=== PATIENT | male | born 1975 | race Caucasian/White ===

== ENCOUNTER 2025-03-08 12:20 | Observation (INO) ==
[2025-03-08 13:08] LABS: Hematocrit (blood only) 45.4 % (42.0-52.0); Hemoglobin 15.2 g/dl (14.0-18.0); Immature Granulocytes # (auto) 0.08 K/uL (0.01-0.20); Immature Granulocytes % (auto) 0.6 %; Mean Corpuscular Hemoglobin 31.2 pg (25.0-34.0); Mean Corpuscular Volume 93.2 fL (80.0-100.0); Platelet Count 303 K/uL (130-400); RDW Standard Deviation 44.4 fL (36.4-46.3); Red Blood Count 4.87 M/uL (4.70-6.10); White Blood Count 13.87 K/ul (4.8-10.8)
--- NOTE | 2025-03-08 13:15 | XRay Report ---
XR chest 1V portable HISTORY: 49 years-old Male Abdominal Pain acute chest and abdominal pain COMPARISON: 05/18/2009 TECHNIQUE: AP view of the chest FINDINGS: Cardiomediastinal and hilar silhouettes are within normal limits. No pneumothorax, pleural effusion o r airspace consolidation. Bones appear grossly intact. IMPRESSION: No acute process. ACT 112: Negative or not required by law. The above report was generated using voice recognition software. It may contain grammatical, syntax o r spelling errors. Electronically signed by: Moises Malhotra M.D. 03/08/2025 1:14 PM
[2025-03-08 13:26] LABS: Alanine Aminotransferase 12.0 U/L (7-52); Albumin Globulin Ratio 1.4 (0.9-2); Alkaline Phosphatase 51.0 U/L (34-104); Anion Gap 7.0 (3-11); Bilirubin,Total 0.7 mg/dl (0.2-1.0); Blood Urea Nitrogen 15.0 mg/dl (6-23); Calcium 9.0 mg/dl (8.6-10.3); Carbon Dioxide 26.0 mmol/L (21-32); Chloride 105.0 mmol/L (98-107); Creatinine Clr Calc Pharmacy 74.2 ml/min; Globulin 3.2 gm/dl (2.5-4.0); Glucose 96.0 mg/dl (70-99(Fasting)); Lipase 30.0 U/L (11-82); Potassium 3.7 mmol/L (3.5-5.1); Sodium 138.0 mmol/L (136-145); Total Protein 7.6 gm/dl (6.0-8.3)
[2025-03-08 13:37] LABS: INR 1.0 (0.9-1.1); Partial Thromboplastin Time 29 Seconds (21-31); Prothrombin Time 10.5 Seconds (9.0-12.0)
[2025-03-08] MEDS: ONDANSETRON INJ 2 MG/ML 2 ML VIAL IV STA (14:10)
[2025-03-08] MEDS: ACETAMINOPHEN 1,000 MG/100 ML VIAL IV STA (14:10)
[2025-03-08] MEDS: diphenhydrAMINE 50 MG/ML VIAL IV STA (14:11)
--- NOTE | 2025-03-08 14:41 | Emergency Department Note ---
Impression & Plan Appendicitis, acute ED Provider Note CHIEF COMPLAINT: Mid epigastric abdominal pain HISTORY OF PRESENTING ILLNESS: Patient is a 49-year-old male who presents to the emergency department today for complaints of mid epigastric abdominal pain. He states he was seen at urgent care and told that he had an abnormal EKG and they had concerns for pancreatitis or appendicitis. Here he reports specifically mid epigastric abdominal pain with some nausea but no vomiting. However on obtaining a thorough history he did report that about a week ago he had some blunt abdominal trauma while working with a table saw and the shield flew off hitting him in the area of concern today. He has no blood in his urine or stool. He denies any direct chest pain, headache, fevers/chills, any recent illness, or any recent travel. He denies smoking or vaping. Does occasionally use alcohol and does have a medical marijuana card. REVIEW OF SYSTEMS: See HPI for pertinent positives and pertinent negatives. ALLERGIES: See below MEDICATIONS: See below PAST MEDICAL HISTORY: See below PHYSICAL EXAM: VITAL SIGNS -Vital signs and nursing notes were reviewed. GENERAL -49-year-old male appearing his stated age who is in no acute distress but does appear significantly uncomfortable and in pain. Communicates well with provider and answers questions appropriately. HEAD -NC/AT. EYES -PERRL with EOMI bilaterally. Sclera anicteric. Palpebral conjunctiva pink and moist with no injection noted. MOUTH/OROPHARYNX -Without perioral cyanosis. Buccal mucosa pink and moist and without leukoplakia. Tongue midline with equal elevation of palate bilaterally. No tonsillar hypertrophy, erythema, or exudates noted. Good dentition noted. NECK- Neck with FROM. Supple to palpation. No nuchal rigidity. LUNGS -Chest wall symmetric without accessory muscle use, intercostals retractions, or central cyanosis. Normal vesicular breath sounds CTA B/L. No wheezes, rales, or rhonchi appreciated. CARDIAC -RRR with S1/S2. No murmur, rubs, or gallops appreciated. ABDOMEN - Abdominal contour is without pulsations or visible masses.BS normoactive all four quadrants. Increased tenderness to palpation appreciated in the mid epigastric region. Positive guarding. No rebound Tenderness. Negative Vovsings. Negative [place]. No palpable masses, hepatosplenomegaly, or ascites noted. EXTREMITIES - No clubbing or peripheral cyanosis. No pretibial edema present. +3/5 radial and dorsalis pedis pulses palpated throughout. +5/5 strength noted in UE/LE bilaterally. PSYCH -A&Ox3 and cooperates fully with examiner. Pt is very pleasant and interacts well with examiner. DIFFERENTIAL DIAGNOSIS: Blunt abdominal trauma, bleed, cholecystitis, appendicitis, constipation, liver injury, spleen injury, pancreatic injury, among others. ED COURSE AND MEDICAL DECISION MAKING: HISTORY FROM INDEPENDENT HISTORIAN: History was provided by the patient and his at bedside. MEDICATIONS GIVEN: An IV lock was placed. The patient was given Tylenol 1 g IV and Zofran 4 mg IV and had improvement with pain and nausea. I considered the use of narcotics on this patient due to the significant pain however the patient refused any narcotic pain medication. MONITOR: Continuous desk monitor: Order was placed for continuous desk monitor. Patient was placed on the desk monitor and continuous pulse ox. Patient was noted to be in normal sinus rhythm at an initial rate of 68 bpm per my interpretation. EKG: EKG was interpreted by myself as normal sinus rhythm with sinus arrhythmia and a right bundle branch block. INTERPRETATION OF LABS: I interpreted the labs with full lab results as below in the lab section of this note. Laboratory results pertinent to the emergent complaint are discussed in the MDM section below. The patient was advised to follow up with their PCP and/or specialist(s) for further outpatient monitoring and management of any abnormal results. INTERPRETATION OF IMAGING: Imaging studies were interpreted by myself and read by radiology as per the imaging section of this note. The patient was advised to follow up with their PCP and/or specialist(s) for further outpatient management of any non-emergent abnormal findings. CHRONIC MEDICAL/SOCIAL CONDITIONS AFFECTING CARE: No social concerns were identified as barriers to patients care. ESCALATION OF CARE CONSIDERED: I considered admission on this patient with a CT scan that did show appendicitis. SUMMARY: I examined the patient for complaints of midepigastric abdominal pain with known blunt force trauma. A physical exam and history were performed. Nursing notes, EMR, and medication list were personally reviewed. Patient CBC did show a white blood cell count of 13.87. No anemia or thrombocytopenia. PT/INR and APTT were all normal. CMP was normal aside from a creatinine 1.4. Urinalysis was negative for leukocytes, nitrates, bacteria. CT scan of the abdomen and pelvis did show acute appendicitis with no evidence of abscess or perforation. There was no evidence of any solid organ injury to the abdomen or pelvis. I consulted with Dr. Reddy who accepted the patient for admission. DIAGNOSIS: Appendicitis TREATMENT PLAN/DISCHARGE INSTRUCTIONS: Admission to hospitalist services. 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 S/P foot surgery right foot-2005 S/P knee surgery right knee-1994 S/P hernia repair 2019 Family History Mother Anxiety Brother Hypertension Kidney disease Denies family history of Ovarian cancer Prostate cancer Breast cancer Colorectal cancer Social History Smoking Status: Former smoker Tobacco Type: Cigarettes Age Started Using Tobacco: 18; Age Quit Using Tobacco: 40; packs per day: 2; Second Hand Exposure: No; Do You Dip or Chew Tobacco: No; Tobacco Cessation Education Requested by Patient: No Hx Alcohol Use: Yes Alcohol Intake Frequency: Monthly or Less Hx Substance Use: No Preferred Language: Hebrew Communication Ability: Effective Visual Impairment: No Limitations Hearing Ability: Normal Construction Ironworker Required: No Beliefs That Will Affect Care: None marital status: Current Living Situation: Spouse current occupational status: employed current occupation: maintenance Other Information That Helps Us Care for You: No Feels Safe at Home: Yes Safety Concerns: Feels Safe At This Time Childhood Exposure to Second-Hand Smoke: No Diet: regular Diet Comment: regular caffeine: Yes (coffee, tea) during the past year weight has: remained stable Dental Care, Regularly: No Physical Activity Frequency: 3-4 Times per Week Seatbelt Use: sometimes Sunscreen Use: Yes Assistive Devices: None Allergies Allergies Allergy/AdvReac Type Severity Reaction Status Date / Time bee venom protein (honey bee) Allergy Severe ANAPHYLAXIS Verified 03/08/25 16:36 shellfish derived Allergy DIZZY Verified 03/08/25 16:36 NAUSEA SWELLING Home Meds Home Medications Medication Instructions Recorded Confirmed No Known Home Medications 03/08/25 03/08/25 Results & Data (ED) Vital Signs Vital Signs - 24 hr 03/08/25 12:33 03/08/25 13:10 03/08/25 13:52 Temperature 37.1 C Temperature Source Temporal Artery Scan Pulse Rate 68 79 Pulse Rate [Apical] 69 Pulse Rhythm [Apical] Regular Pulse Strength [Apical] Normal Respiratory Rate 18 18 Respiratory Effort / Characteristics Non-Labored Spontaneous Respiratory Depth Normal Respiratory Pattern Regular Blood Pressure 143/89 H Blood Pressure [Right Arm] Blood Pressure Mean 107 Blood Pressure Mean [Right Arm] Pulse Oximetry 97 99 Oxygen Delivery Method Room Air Room Air Sepsis Recent Fever Within 48 Hours No Sepsis New/Unexplained Change in Mental Status N/A Sepsis Action Taken by Nursing No Action Required 03/08/25 14:00 03/08/25 15:00 Temperature Temperature Source Pulse Rate Pulse Rate [Apical] 68 75 Pulse Rhythm [Apical] Pulse Strength [Apical] Respiratory Rate 19 18 Respiratory Effort / Characteristics Non-Labored Spontaneous Respiratory Depth Normal Respiratory Pattern Blood Pressure Blood Pressure [Right Arm] 131/93 129/78 Blood Pressure Mean Blood Pressure Mean [Right Arm] 105 95 Pulse Oximetry 96 97 Oxygen Delivery Method Room Air Sepsis Recent Fever Within 48 Hours Sepsis New/Unexplained Change in Mental Status Sepsis Action Taken by Nursing Laboratory Data 03/08/25 12:45 03/08/25 12:45 Lab Results 03/08/25 Range/Units 12:45 WBC 13.87 H (4.8-10.8) K/ul RBC 4.87 (4.70-6.10) M/uL Hgb 15.2 (14.0-18.0) g/dl Hct 45.4 (42.0-52.0) % MCV 93.2 (80.0-100.0) fL MCH 31.2 (25.0-34.0) pg MCHC 33.5 (32.0-36.0) g/dL RDW Std Deviation 44.4 (36.4-46.3) fL RDW Coeff of Philip 13.1 (11.5-14.5) % Plt Count 303 (130-400) K/uL MPV 10.1 (9.4-12.4) fL Immature Gran % (Auto) 0.6 % Neut % (Auto) 77.6 % Lymph % (Auto) 14.7 % [place] % (Auto) 6.1 % Eos % (Auto) 0.6 % Baso % (Auto) 0.4 % Neut # (Auto) 10.77 H (1.40-6.50) K/uL Lymph # (Auto) 2.04 (1.20-3.40) K/uL [place] # (Auto) 0.85 H (0.11-0.59) K/uL Eos # (Auto) 0.08 (0.00-0.50) K/uL Baso # (Auto) 0.05 (0.00-0.20) K/uL Immature Gran # (Auto) 0.08 (0.01-0.20) K/uL PT 10.5 (9.0-12.0) Seconds INR 1.0 (0.9-1.1) APTT 29 (21-31) Seconds PTT Ratio 1.1 Sodium 138 (136-145) mmol/L Potassium 3.7 (3.5-5.1) mmol/L Chloride 105 (98-107) mmol/L Carbon Dioxide 26 (21-32) mmol/L Anion Gap 7 (3-11) BUN 15 (6-23) mg/dl Creatinine 1.42 H (0.6-1.4) mg/dl Est Cr Clr Drug Dosing 74.2 ml/min eGFR 61.33 BUN/Creatinine Ratio 10.6 (10-20) Glucose 96 (70-99(Fasting)) mg/dl Calcium 9.0 (8.6-10.3) mg/dl Total Bilirubin 0.7 (0.2-1.0) mg/dl AST 14 (13-39) U/L ALT 12 (7-52) U/L Alkaline Phosphatase 51 (34-104) U/L Troponin I High Sens 4.9 (0-20) pg/ml Total Protein 7.6 (6.0-8.3) gm/dl Albumin 4.4 (3.4-5.0) gm/dl Globulin 3.2 (2.5-4.0) gm/dl Albumin/Globulin Ratio 1.4 (0.9-2) Lipase 30 (11-82) U/L Administered Medications Lactated Ringer's (Lr) 1,000 mls @ 80 mls/hr IV .[id number] SALONI Stop: 03/11/25 18:44 Last Admin: 03/08/25 19:32 Dose: 80 mls/hr Documented By: NANCIE Morphine Sulfate (Morphine Sulfate 2 Mg/Ml Carp) 2 mg IV Q3H PRN PRN Reason: Pain (1,2,3,4,5) & Pre PT Stop: 03/22/25 18:21 Last Admin: 03/08/25 18:45 Dose: 2 mg Documented By: MARBIN Ondansetron HCl (Ondansetron Inj 2 Mg/Ml 2 Ml Vial) 4 mg IV Q6H PRN PRN Reason: Nausea Stop: 04/07/25 18:21 Last Admin: 03/08/25 20:15 Dose: 4 mg Documented By: NANCIE Discontinued Medications Diphenhydramine HCl (Diphenhydramine 50 Mg/Ml Vial) 50 mg IV NOW STA Stop: 03/08/25 13:59 Last Admin: 03/08/25 14:11 Dose: Not Given Documented By: LUCY Acetaminophen (Ofirmev) 1,000 mg in 100 mls @ 400 mls/hr IV NOW STA Stop: 03/08/25 13:56 Last Infusion: 03/08/25 15:00 Dose: Infused Documented By: Admin: 03/08/25 14:10 Dose: 400 mls/hr Documented By: LUCY Piperacillin Sod/Tazobactam Sod (Zosyn) 4.5 gm in 100 mls @ 200 mls/hr IV NOW STA; Protocol Stop: 03/08/25 19:04 Last Infusion: 03/08/25 20:14 Dose: Infused Documented By: Admin: 03/08/25 19:36 Dose: 200 mls/hr Documented By: NANCIE Methylprednisolone (Methylprednisolone 125 Mg/2 Ml Vial) 125 mg IV NOW STA Stop: 03/08/25 13:59 Last Admin: 03/08/25 14:11 Dose: Not Given Documented By: LUCY Ondansetron HCl (Ondansetron Inj 2 Mg/Ml 2 Ml Vial) 4 mg IV NOW STA Stop: 03/08/25 13:43 Last Admin: 03/08/25 14:10 Dose: 4 mg Documented By: LUCY Imaging Data Radiologist's Impression: Chest X-Ray 03/08/25 12:38 XR chest 1V portable HISTORY: 49 years-old Male Abdominal Pain acute chest and abdominal pain COMPARISON: 05/18/2009 TECHNIQUE: AP view of the chest FINDINGS: Cardiomediastinal and hilar silhouettes are within normal limits. No pneumothorax, pleural effusion or airspace consolidation. Bones appear grossly intact. IMPRESSION: No acute process. ACT 112: Negative or not required by law. The above report was generated using voice recognition software. It may contain grammatical, syntax or spelling errors. Electronically signed by: Moises Malhotra M.D. 03/08/2025 1:14 PM Abdomen/Pelvis CT 03/08/25 14:06 CT SCAN OF THE ABDOMEN AND PELVIS WITHOUT IV CONTRAST CLINICAL HISTORY: Mid abdominal pain. Recent blunt trauma. COMPARISON STUDY: Abdominal CT dated 05/18/2009 TECHNIQUE: CT scan of the abdomen and pelvis is performed from the lung bases to the proximal femora. Images are reviewed in the axial, sagittal, and coronal planes. IV contrast was not administered for this examination. A dose lowering technique was utilized adhering to the principles of ALARA. CT DOSE: 1320.94 mGy.cm FINDINGS: Lung bases: The heart is normal in size and without pericardial effusion. The lung bases are clear noting mild dependent atelectasis. There is a small hiatal hernia. Liver: The unenhanced liver is normal in size, contour, and attenuation. There is no intrahepatic biliary ductal dilatation. Gallbladder: Unremarkable. Spleen: Normal in size and attenuation. Pancreas: The unenhanced pancreas is grossly unremarkable. Adrenal glands: Unremarkable. Kidneys: The the left kidney is not identified and presumed surgically absent. The unenhanced right kidney is normal in size and without hydronephrosis. No right renal calculi are identified and there is no ureteral stone. There is no evidence of contour deforming renal mass lesion. Abdominal vasculature: The abdominal aorta is normal in course and caliber noting mild atherosclerotic calcification. Bowel: There is no bowel obstruction. The appendix is dilated, measuring 15 mm in diameter. The appendix is fluid-filled and contains small air-fluid levels. The wall is thickened and there is periappendiceal inflammation. Findings are consistent with acute appendicitis. No fluid collection is seen to suggest abscess. Peritoneum: There is no intraperitoneal free air or abdominal ascites. Postsurgical changes noted in the ventral abdominal wall. Lymphadenopathy: None. Pelvic viscera: The bladder, prostate, and seminal vesicles are normal as visualized. Skeletal structures: No lytic or blastic lesions are seen. IMPRESSION: 1. Acute appendicitis. There is no evidence of abscess or perforation. 2. There is no evidence of solid organ injury in the abdomen or pelvis on this unenhanced examination. 3. Status post left nephrectomy. 4. Additional findings as above. ACT 112: Negative or not required by law. Electronically signed by: Enzo Kwon M.D. 03/08/2025 2:56 PM Discharge Plan Visit Data Chief Complaint: Abdominal Pain Stated Complaint: ABD PAIN ED Provider: Abilio Wright ED Midlevel Provider: Felicitas Lucas Discharge Problem: Appendicitis, acute Patient Disposition: Admitted As Inpatient Condition: Good Discharge Instructions Interventions: ED Discharge Assessment Last Done: 03/08/25 18:00 Discharge Problem: Appendicitis, acute Qualifiers: Acute appendicitis type: unspecified acute appendicitis type Qualified Code(s): K35.80 - Unspecified acute appendicitis
--- NOTE | 2025-03-08 14:58 | CT Scan Report ---
CT SCAN OF THE ABDOMEN AND PELVIS WITHOUT IV CONTRAST CLINICAL HISTORY: Mid abdominal pain. Recent blunt trauma. COMPARISON STUDY: Abdominal CT dated 05/18/2009 TECHNIQUE: CT scan of the abdomen and pelvis is performed from the lung bases to the proximal femora. Images are reviewed in the axial, sagittal, and coronal planes. IV contrast was not administered for this examination. A dose lowering technique was utilized adhering to the principles of ALARA. CT DOSE: 1320.94 mGy.cm FINDINGS: Lung bases: The heart is normal in size and without pericardial effusion. The lung bases are clear no ting mild dependent atelectasis. There is a small hiatal hernia. Liver: The unenhanced liver is normal in size, contour, and attenuation. There is no intrahepatic matthew iary ductal dilatation. Gallbladder: Unremarkable. Spleen: Normal in size and attenuation. Pancreas: The unenhanced pancreas is grossly unremarkable. Adrenal glands: Unremarkable. Kidneys: The the left kidney is not identified and presumed surgically absent. The unenhanced right k idney is normal in size and without hydronephrosis. No right renal calculi are identified and there i s no ureteral stone. There is no evidence of contour deforming renal mass lesion. Abdominal vasculature: The abdominal aorta is normal in course and caliber noting mild atheroscleroti c calcification. Bowel: There is no bowel obstruction. The appendix is dilated, measuring 15 mm in diameter. The appe ndix is fluid-filled and contains small air-fluid levels. The wall is thickened and there is periappe ndiceal inflammation. Findings are consistent with acute appendicitis. No fluid collection is seen to suggest abscess. Peritoneum: There is no intraperitoneal free air or abdominal ascites. Postsurgical changes noted in the ventral abdominal wall. Lymphadenopathy: None. Pelvic viscera: The bladder, prostate, and seminal vesicles are normal as visualized. Skeletal structures: No lytic or blastic lesions are seen. IMPRESSION: 1. Acute appendicitis. There is no evidence of abscess or perforation. 2. There is no evidence of solid organ injury in the abdomen or pelvis on this unenhanced examination . 3. Status post left nephrectomy. 4. Additional findings as above. ACT 112: Negative or not required by law. Electronically signed by: Enzo Kwon M.D. 03/08/2025 2:56 PM
--- NOTE | 2025-03-08 16:00 | History & Physical Report ---
Date of Service March 08, 2025 Assessment & Plan (1) Appendicitis, acute: Plan: no appendicolith IV abx IVF will try short course of abx if does not respond then to OR in AM History of Present Illness Primary Care Provider: Jasmin Ku DO This is a 49YO who came to ED with abdominal pain. It began mid epigastric with some nausea but no vomiting. The pain is more right sided at this point. A CT scan shows appendicitis without an appendicolith. Pain improved since came to ED. 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) Overweight (BMI 25.0-29.9) Rotator cuff tendonitis Surgical History 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 S/P foot surgery right foot-2005 S/P knee surgery right knee-1994 S/P hernia repair 2019 Family History Mother Anxiety Brother Hypertension Kidney disease Denies family history of Ovarian cancer Prostate cancer Breast cancer Colorectal cancer Social History Smoking Status: Never smoker Tobacco Type: Cigarettes Age Started Using Tobacco: 18; Age Quit Using Tobacco: 40; packs per day: 2; Second Hand Exposure: No; Do You Dip or Chew Tobacco: No; Hx Alcohol Use: Yes Alcohol Intake Frequency: Monthly or Less Hx Substance Use: No Preferred Language: Gambian Communication Ability: Effective Visual Impairment: No Limitations Hearing Ability: Normal Pricing Associate Required: No Beliefs That Will Affect Care: None marital status: Current Living Situation: Spouse current occupational status: employed current occupation: maintenance Feels Safe at Home: Yes Childhood Exposure to Second-Hand Smoke: No Diet: regular Diet Comment: regular caffeine: Yes (coffee, tea) during the past year weight has: remained stable Dental Care, Regularly: No Physical Activity Frequency: 3-4 Times per Week Seatbelt Use: sometimes Sunscreen Use: Yes Review of Systems no fever and no chills no problem reported no problem reported no cough and no dyspnea no chest pain + abdominal pain and + nausea; no vomiting and no change in bowel habits no dysuria no back pain no problem reported no localized weakness and no generalized weakness no behavioral changes no easy bleeding and no easy bruising Physical Exam Constitutional: WD/WN, vitals as above Eyes: no scleral abnormality ENMT: external ear and nose normal, oropharynx normal Neck: trachea midline Respiratory: normal respiratory effort, lungs clear to auscultation Cardiovascular: RRR, no murmur, no edema Gastrointestinal (Abdomen): Inspection/Auscultation: abdomen normal to inspection, normal bowel sounds and + abdominal surgical scar (LLQ); abdomen not distended Percussion/Palpation: + abdomen tender and abdomen soft; no guardi ng and abdomen not rigid Musculoskeletal: Head/Neck/Chest: normocephalic and head atraumatic Skin: no rashes, warm and dry Results & Data Vital Signs (Past 12 Hours) Vital Signs Temp Pulse Pulse Resp BP BP Pulse Ox 03/08/25 15:00 75 18 129/78 97 03/08/25 14:00 68 19 131/93 96 03/08/25 13:52 79 03/08/25 13:10 69 18 99 03/08/25 12:33 37.1 C 68 18 143/89 H 97 O2 Del Method 03/08/25 15:00 03/08/25 14:00 Room Air 03/08/25 13:52 03/08/25 13:10 Room Air 03/08/25 12:33 Room Air Diagnostic Findings CT SCAN OF THE ABDOMEN AND PELVIS WITHOUT IV CONTRAST CLINICAL HISTORY: Mid abdominal pain. Recent blunt trauma. COMPARISON STUDY: Abdominal CT dated 05/18/2009 TECHNIQUE: CT scan of the abdomen and pelvis is performed from the lung bases to the proximal femora. Images are reviewed in the axial, sagittal, and coronal planes. IV contrast was not administered for this examination. A dose lowering technique was utilized adhering to the principles of ALARA. CT DOSE: 1320.94 mGy.cm FINDINGS: Lung bases: The heart is normal in size and without pericardial effusion. The lung bases are clear noting mild dependent atelectasis. There is a small hiatal hernia. Liver: The unenhanced liver is normal in size, contour, and attenuation. There is no intrahepatic biliary ductal dilatation. Gallbladder: Unremarkable. Spleen: Normal in size and attenuation. Pancreas: The unenhanced pancreas is grossly unremarkable. Adrenal glands: Unremarkable. Kidneys: The the left kidney is not identified and presumed surgically absent. The unenhanced right kidney is normal in size and without hydronephrosis. No right renal calculi are identified and there is no ureteral stone. There is no evidence of contour deforming renal mass lesion. Abdominal vasculature: The abdominal aorta is normal in course and caliber noting mild atherosclerotic calcification. Bowel: There is no bowel obstruction. The appendix is dilated, measuring 15 mm in diameter. The appendix is fluid-filled and contains small air-fluid levels. The wall is thickened and there is periappendiceal inflammation. Findings are consistent with acute appendicitis. No fluid collection is seen to suggest abscess. Peritoneum: There is no intraperitoneal free air or abdominal ascites. Postsurgical changes noted in the ventral abdominal wall. Lymphadenopathy: None. Pelvic viscera: The bladder, prostate, and seminal vesicles are normal as visualized. Skeletal structures: No lytic or blastic lesions are seen. IMPRESSION: 1. Acute appendicitis. There is no evidence of abscess or perforation. 2. There is no evidence of solid organ injury in the abdomen or pelvis on this unenhanced examination. 3. Status post left nephrectomy. 4. Additional findings as above.
--- NOTE | 2025-03-08 18:10 | Electrocardiogram Report ---
Test Reason : Blood Pressure : */* mmHG Vent. Rate : 68 BPM Atrial Rate : 68 BPM P-R Int : 150 ms QRS Dur : 104 ms QT Int : 374 ms P-R-T Axes : 59 72 57 degrees QTcB Int : 397 ms Normal sinus rhythm with sinus arrhythmia Incomplete right bundle branch block Borderline ECG No previous ECGs available Confirmed by Kashmir Sutherland ([id number]) on 03/08/2025 6:09:52 PM Referred By: REFERRED SELF Confirmed By: Kashmir Sutherland
[2025-03-08] MEDS ORDERED: MoRPHine SULFATE 4 MG/ML 1 ML CARP\\VIAL IV PRN (18:22)
[2025-03-08] MEDS: MoRPHine SULFATE 2 MG/ML CARP IV PRN (18:45)
[2025-03-08] MEDS: LACTATED RINGER'S 1,000 ML IV SCH (19:32)
[2025-03-08] MEDS: 4.5GM X1 IV STA (19:36)
[2025-03-08] MEDS: ONDANSETRON INJ 2 MG/ML 2 ML VIAL IV PRN (20:15)
[2025-03-08 21:44] LABS: Appearance Urine Clear (Clear); Glucose Urine UA Negative (Negative)
[2025-03-08] MEDS: PIPERACILLIN/TAZOBACTAM 4.5 GM/100 ML BAG IV SCH (23:33)
[2025-03-09 07:27] LABS: Hematocrit (blood only) 46.9 % (42.0-52.0); Hemoglobin 15.6 g/dl (14.0-18.0); Immature Granulocytes # (auto) 0.06 K/uL (0.01-0.20); Immature Granulocytes % (auto) 0.5 %; Mean Corpuscular Hemoglobin 31.0 pg (25.0-34.0); Mean Corpuscular Volume 93.1 fL (80.0-100.0); Platelet Count 315 K/uL (130-400); RDW Standard Deviation 45.1 fL (36.4-46.3); Red Blood Count 5.04 M/uL (4.70-6.10); White Blood Count 11.48 K/ul (4.8-10.8)
[2025-03-09] MEDS ORDERED: ROCURONIUM BROMIDE 10 MG/ML 5 ML VIAL IV ONE (07:28)
[2025-03-09] MEDS ORDERED: LIDOCAINE 2% 2 ML VIAL/AMP(20MG/ML) INFIL ONE (07:28)
[2025-03-09] MEDS ORDERED: MIDAZOLAM HCL 1 MG/ML 2ML VIAL ONE ×2 (07:28→08:37)
[2025-03-09] MEDS ORDERED: PROPOFOL IV EMULSION 10 MG/ML 20 ML VIAL IV ONE (07:28)
[2025-03-09] MEDS ORDERED: DEXAMETHASONE SOD INJ 4 MG/ML VIAL ONE (07:28)
[2025-03-09] MEDS ORDERED: ONDANSETRON INJ 2 MG/ML 2 ML VIAL ONE (07:28)
[2025-03-09] MEDS ORDERED: DexMEDEtomidine HCL IV 100 MCG/ML VIAL IV ONE (07:29)
[2025-03-09] MEDS ORDERED: ACETAMINOPHEN 1000 MG/100 ML IV IV ONE (07:45)
--- NOTE | 2025-03-09 08:01 | History & Physical Bridge Note ---
Date of Service March 09, 2025 History & Physical Bridge Note I have examined the patient, reviewed the History & Physical and in the interval since the performance of the History & Physical I have noted the following changes of clinical significance: no changes noted
--- NOTE | 2025-03-09 08:04 | Anesthesiology Consultation ---
Date of Service March 09, 2025 Assessment & Plan Chart Review Chart Review: Acceptable Risk for Surgery and Patient NOT seen in Pre Admission Testing Consults Requested none ASA ASA2E Proposed Anesthesia Anesthesia Type: General Risk / Benefits Reviewed With: PT / POA / Parent / Guardian, Accepts Plan and Informed Consent Obtained History Surgery Operation Date: 03/09/25 07:00 Proposed Procedures p Laparoscopic Appendectomy - Simone Campos MD Height/Weight Height: 5 ft 10 in Weight: 91 kg Allergies Allergy/AdvReac Type Severity Reaction Status Date / Time bee venom protein (honey bee) Allergy Severe ANAPHYLAXIS Verified 03/09/25 07:42 shellfish derived Allergy DIZZY Verified 03/09/25 07:42 NAUSEA SWELLING Medications Home Medications Medication Instructions Recorded Confirmed Last Taken No Known Home Medications 03/08/25 03/08/25 Unknown Active Medications Generic Name Dose Route Start Last Admin Trade Name Freq PRN Reason Stop Dose Admin Piperacillin Sod/Tazobactam Sod 4.5 gm in 100 mls @ 25 mls/hr 03/08/25 23:30 03/09/25 08:00 Zosyn IV 03/12/25 23:29 25 mls/hr Q8H SALONI Administration Protocol Lactated Ringer's 1,000 mls @ 80 mls/hr 03/08/25 18:45 03/09/25 07:27 Lr IV 03/11/25 18:44 0 mls/hr .[id number] SALONI Infusion Morphine Sulfate 2 mg 03/08/25 18:22 03/08/25 18:45 Morphine Sulfate 2 Mg/Ml Carp IV 03/22/25 18:21 2 mg Q3H PRN Administration Pain (1,2,3,4,5) & Pre PT Ondansetron HCl 4 mg 03/08/25 18:22 03/08/25 20:15 Ondansetron Inj 2 Mg/Ml 2 Ml Vial IV 04/07/25 18:21 4 mg Q6H PRN Administration Nausea NPO Date Last Intake of Fluids: 03/09/25 Time Last Intake of Fluids: 05:00 Last Intake of Fluids Comment: 1 sip of water, prior to that was coffee at 8am 7/8 Date Last Intake of Solids: 03/07/25 Time Last Intake of Solids: 17:00 Past Medical History ADD 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 HLD ASCVD Ao (mild) obese polyarthropathy GERD IRBBB Exercise / Class Metabolic Activity II 4-5 Yardwork/Stairs/Walk up hill Past Family History Family History Mother Anxiety Brother Hypertension Kidney disease Denies family history of Ovarian cancer Prostate cancer Breast cancer Colorectal cancer Past Surgical History Surgical History 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 S/P foot surgery right foot-2005 S/P knee surgery right knee-1994 S/P hernia repair 2019 Past Anesthesia History No Hx of Anesthesia Complications and No Family Hx of Anesthesia Complications History of PONV No Hx of PONV and No Hx of Motion Sickness Social History Smoking Status: Former smoker tobacco type: cigarettes Do You Dip or Chew Tobacco: No Hx Alcohol Use: Yes alcohol intake frequency: holidays/special occasions only Hx Substance Use: No Physical Exam Vital Signs Last Vital Signs Temp 36.8 C 03/09/25 07:42 Pulse 74 03/09/25 07:42 Resp 20 03/09/25 07:42 BP 128/71 03/09/25 07:42 Pulse Ox 98 03/09/25 07:42 O2 Del Method Room Air 03/09/25 07:42 Constitutional + obese; no acute distress ENMT Mouth: + dentition abnormality, + poor dentition and + chipped teeth Thyromental Distance: > or= 3.5 Finger Breadths Mallampati Class: III Neck normal visual inspection, trachea midline and + facial hair; neck extension not limited Respiratory normal respiratory effort Auscultation: lungs clear to auscultation bilaterally Cardiovascular Rate/Rhythm: regular rate and regular rhythm Heart Sounds: no murmur Vessels: no carotid bruit Musculoskeletal Spine: normal cervical ROM and no pain with cervical ROM Extremities: extremities normal to inspection; full ROM of extremities Neurologic moves all extremities Motor/Sensory: no sensory deficit Psychiatric Orientation: alert and oriented x 3 Testing Laboratory Results 03/09/25 06:54 03/08/25 12:45 PT 10.5 Seconds (9.0-12.0) 03/08/25 12:45 INR 1.0 (0.9-1.1) 03/08/25 12:45 APTT 29 Seconds (21-31) 03/08/25 12:45 Urine Color Yellow 03/08/25 Unknown Urine Appearance Clear (Clear) 03/08/25 Unknown Urine pH 6.5 (4.5-7.5) 03/08/25 Unknown Ur Specific [place] 1.020 (1.000-1.030) 03/08/25 Unknown Urine Protein Negative (Negative) 03/08/25 Unknown Urine Glucose (UA) Negative (Negative) 03/08/25 Unknown Urine Ketones 1+ (Negative) H 03/08/25 Unknown Urine Nitrite Negative (Negative) 03/08/25 Unknown Ur Leukocyte Esterase Negative (Negative) 03/08/25 Unknown Electrocardiogram Date: 03/08/25 Findings: + NSR @ (@ 70 w/ SA;IRBBB) Chest X-Ray Date: 03/08/25 Findings: + NAD
[2025-03-09] MEDS ORDERED: NALOXONE HCL 0.4 MG/1 ML VIAL/CARP IV PRN (08:06)
[2025-03-09] MEDS ORDERED: PROMETHAZINE HCL 6.25 MG in SODIUM CHLORIDE 0.9% 50 ML IV PRN (08:06)
[2025-03-09] MEDS ORDERED: FLUMAZENIL 0.1 MG/1 ML 10 ML VIAL IV PRN (08:06)
[2025-03-09] MEDS ORDERED: HYDROmorphone INJ 1 MG/ML SYRINGE IV PRN (08:06)
[2025-03-09] MEDS ORDERED: ATROPINE SULFATE 0.1 MG/ML 10ML SYR IV PRN (08:06)
[2025-03-09] MEDS ORDERED: KETOROLAC 30 MG/ML VIAL ONE (08:50)
[2025-03-09] MEDS ORDERED: SUGAMMADEX SODIUM 200 MG/2 ML VIAL IV ONE ×2 (08:50→08:52)
--- NOTE | 2025-03-09 09:07 | Operative Report ---
Post Operative Report Pre & Post Diagnosis Operation Date: 03/09/25 07:00 Pre-Op Diagnosis: Acute Appendicitis Post-Op Diagnosis: Acute Appendicitis I identified the patient and participated in the time-out.: Yes Procedure Operation Date: 03/09/25 07:00 Actual Procedures p Laparoscopic Appendectomy(Not Applicable) - Simone Cmapos MD Surgeon Simone Campos MD Wood Casket Assembler none Estimated Blood Loss 6 Findings Consistent with Post-Op Diagnosis Specimens appendix to pathology Drains none Anesthesia Type General Complications none Disposition Accompanied Patient To Recovery: No Disposition: Recovery Room Indications This is a 49-year-old male admitted to the ED with acute abdominal pain. Workup showed appendicitis without an appendicolith. He was placed on IV antibiotics for trial of conservative therapy. He continued pain will be taken to the OR for laparoscopic appendectomy. We have the risks in detail. Description of Procedure The patient was taken to the OR and underwent excellent general anesthesia. Their abdomen was prepped and draped in normal sterile fashion. A transverse supraumbilical incision was made, towel clamps were used to create tension on the abdominal wall as an 11 port was placed in the supraumbilical position, inserted with visualization gently into the peritoneal cavity. Good pneumoperitoneum was achieved to about 15 mmHg pressure. Once this was done, a visualized 12 mm left lower quadrant port , a 5mm suprapubic port , and a 5mm right upper quadrant port were all placed in normal fashion. Patient was then placed in head down and rolled to the left. A good diagnostic lap was performed. They had obvious acute appendicitis. The cecum was grasped with an atraumatic grasper. A grasper was then was then used to grasp the tip of the appendix. The mesoappendix was splayed open and a harmonic scalpel was used to take down the mesoappendix. The base of the appendix was identified and an Endo MAGALI stapler was used to transect the appendix at its base. A endobag was then inserted through the left lower quadrant port and the appendix was placed into the bag, The bag was removed through the left lower quadrant port. The appendix was sent for pathologic evaluation. The pneumoperitoneum was re- established after the 12 mm port was replaced. Saline was then used to irrigate the abdomen. There was no active bleeding nor any other abnormalities noted in the abdomen. The patient was then placed back in neutral position, the ports were removed and the pneumoperitoneum decompressed. The 12mm port fascia was then closed using a 0 Vicryl. The skin was then anesthetized with 0.5% Marcaine with epinephrine local. Interrupted Vicryl is used to close the skin. Dermabond was used to reinforce the incisions. Sterile dressings were applied. The patient tolerated procedure without complications was sent to the postop recovery period of observation. They will be sent to the floor for the rest of their care. I attest to the content of the Intraoperative Record and any orders documented therein. Any exceptions are noted below.
[2025-03-09] MEDS: ONDANSETRON INJ 2 MG/ML 2 ML VIAL IV PRN (09:18)
--- NOTE | 2025-03-09 09:49 | Anesthesiology Progress Note ---
Date of Service March 09, 2025 Anesthesia Post Procedure Vital Signs Vital Signs: Temp Pulse Pulse Pulse Resp BP BP 03/09/25 09:40 77 16 131/63 03/09/25 09:30 76 24 128/76 03/09/25 09:20 83 24 138/73 03/09/25 09:13 36.1 C L 77 20 141/93 H 03/09/25 07:42 36.8 C 74 20 128/71 03/09/25 07:10 36.6 C 69 18 129/75 03/08/25 19:39 36.8 C 69 16 122/72 03/08/25 18:23 36.7 C 69 16 141/75 H 03/08/25 17:00 71 18 135/78 03/08/25 15:00 75 18 129/78 03/08/25 14:00 68 19 131/93 03/08/25 13:52 79 03/08/25 13:10 69 18 03/08/25 12:33 37.1 C 68 18 143/89 H Pulse Ox O2 Del Method 03/09/25 09:40 99 Room Air 03/09/25 09:30 98 Room Air 03/09/25 09:20 99 Room Air 03/09/25 09:13 93 Room Air 03/09/25 07:42 98 Room Air 03/09/25 07:10 95 Room Air 03/08/25 19:39 97 Room Air 03/08/25 18:23 97 Room Air 03/08/25 17:00 97 03/08/25 15:00 97 03/08/25 14:00 96 Room Air 03/08/25 13:52 03/08/25 13:10 99 Room Air 03/08/25 12:33 97 Room Air Pain Intensity Right Lower Abdomen: Pain Intensity: 4 Transfer of Care Handoff Completed per policy Notes Mental Status: alert / awake / arousable Patient Amnestic to Procedure: Yes Nausea / Vomiting: adequately controlled Pain: adequately controlled Airway Patency, RR, SpO2: stable & adequate BP & HR: stable & adequate Hydration State: stable & adequate Anesthetic Complications: no major complications apparent
[2025-03-09] MEDS: BUPIVACAINE/EPINEPHRINE 0.5% MPF 1:200,000 30 ML VIAL ONE (10:13)
[2025-03-09 10:48] VITALS: RESP 18
[2025-03-09 11:20] VITALS: PULSE 75; O2SAT 96
[2025-03-09 13:14] VITALS: BP 116/74; TEMP 98.1
[2025-03-09] MEDS: ACETAMINOPHEN 325 MG TAB PO PRN (15:05)
--- NOTE | 2025-03-09 15:30 | Discharge Summary ---
Date of Service March 09, 2025 Admission HPI Per Admitting Provider This is a 49YO who came to ED with abdominal pain. It began mid epigastric with some nausea but no vomiting. The pain is more right sided at this point. A CT scan shows appendicitis without an appendicolith. Pain improved since came to ED. Principal Diagnosis Acute appendicitis Discharge Exam Constitutional WD/WN, vitals as above cooperative and comfortable; no acute distress and not ill appearing Respiratory normal respiratory effort; no respiratory distress, no labored breathing and no retractions Gastrointestinal (Abdomen) Inspection/Auscultation: abdomen normal to inspection and + abdominal surgical incision (c/d/i with dermabond); abdomen not distended Percussion/Palpation: + abdomen tender (mild at incision sites) and abdomen soft; no guarding, abdomen not rigid and abdomen not firm Skin no rashes, warm and dry Psychiatric A+Ox3, euthymic affect Discharge Data Allergies Allergy/AdvReac Type Severity Reaction Status Date / Time bee venom protein (honey bee) Allergy Severe ANAPHYLAXIS Verified 03/09/25 07:42 shellfish derived Allergy DIZZY Verified 03/09/25 07:42 NAUSEA SWELLING Procedures Performed Operation Date: 03/09/25 07:00 Actual Procedures p Laparoscopic Appendectomy(Not Applicable) - Simone Campos MD Ordered Studies 03/08/25 14:06 CT abd pelvis wo con Stat Hospital Course (1) Appendicitis, acute: Patient admitted to hospital from emergency department and started on IV abx . Pain persisted so he was taken to operating room for laparoscopic appendectomy on 03/09/2025. He was found to have uncomplicated appendicitis . Patient tolerated procedure without difficulty and was transferred to recovery and then to medical/surgical floor for postop care. Diet was advanced as tolerated, and pain controlled with Tylenol postoperatively. He was able to urinate postop . Patient discharged home on POD # 0 in stable condition. Total Time Total Time Spent Total Time Spent (In Minutes): 15 Total Time Includes: Examination of the Patient, Discharge Planning and Medication Reconciliation Discharge Plan Discharge Items Patient Disposition: Home - Self-Care Reason For Visit: APPENDICITIS Discharge Diagnosis: acute appendicitis Condition on Discharge: Good Activity: Per Instructions section Non-emergency contact: Primary Care Provider and Surgeon Call non-emergency contact if: you have any medication questions, your pain is not controlled, your pain is worsening, you have a fever, your temperature is above 101, your wound has increased redness, your wound has increased drainage and your wound pain has increased Follow-up/Referrals: Jasmin Ku DO [Primary Care Provider] - Mariama Wellington PA-C [Physician Hris Specialist] - 03/24/25 10:15 am Diet: Regular Addtl Attending Provider Instructions: Post-Surgical ~Discharge Instructions Activity Recommendations: - lifting limitation: (20 pounds for 3 weeks), - exercise/sex/sports limit: (nonstrenuous for 2 weeks), - driving or machine use limit: (none for at least 3 days and no longer taking narcotic pain medication, - Shower/bathe limit: (may shower, no submerging incisions underwater for two weeks) Diet: - Resume previous diet SPECIAL CARE INSTRUCTIONS: - May shower. Let water run over area and pat dry. - Leave surgical glue on incisions, this will fall off on its own.. - Call the surgeon's office with any questions or concerns - - (ex. temperature higher than 101 degrees F, excessive bleeding or pain). MEDICATIONS: - Resume previous medications unless instructed otherwise by your surgeon. May take extra strength Tylenol as needed for mild to moderate pain -650 mg Tylenol every 6 hours as needed - Percocet 1 every 6 hours, as needed for moderate to severe pain - Each tablet of Percocet has 325 mg of Tylenol in it. Do not exceed 3000 mg of Tylenol in 24 hour period. - Recommend daily stool softener (Colace) while taking narcotic pain medication to prevent constipation or straining. Drink plenty of water daily. FOLLOW UP VISIT: - If not already scheduled, please call the office to schedule a two week follow-up appointment. Office number Pending Studies at Discharge: Yes (pathology) Stand-Alone Forms: [facility] [employer], Work/School Release, Smoking Cessation Medications and DC Order Prescriptions: New oxycodone-acetaminophen 5-325 mg tablet 1 tab PO Q6H PRN (Reason: pain) Qty: 5 0RF Discharge Orders: Discharge Order (Routine); Ordered 03/09/25 Ordered By: Mariama Wellington Admission Data Admit Date/Time: 03/08/25 16:05 Attending Provider: Simone Campos Admit Provider: Simone Campos Primary Care Provider: Jasmin Ku
== END 2025-03-09 16:17 | disposition home or self-care (01) ==
LOC: 3N 12:20 → ED 12:20 → 3N 18:00